=== PATIENT | female | born 1945 | race Hispanic/Latino ===

== ENCOUNTER 2017-09-08 09:14 | Inpatient (IN) | payer MEDICARE, OTHER ==
[~2017-09-08] VITALS: Ht 149.9 cm; Wt 84.9 kg
[~2017-09-08 09:14] MED LIST: ASPIRIN; ASPIRIN PO; LORTAB 7.5-5001 EACH PO; LOVENOX40 MG/0.4 PO; Z.0.KEPPRA1000 MG PO; Z.0.TOPAMAX50 MG PO
[2017-09-08] MEDS ORDERED: MORPHINE SULFATE 2 MG/ML SYR IV STA ×2 (10:06→13:29)
[2017-09-08] MEDS ORDERED: ONDANSETRON HCL 4 MG ORAL DISINTEGRATING TAB PO ONE (10:15)
--- NOTE | 2017-09-08 10:46 | Diagnostic Imaging Report ---
EXAMINATION: PA and lateral views of the chest. COMPARISON: Chest 2 views 10/13/2011 CLINICAL HISTORY: Abdominal pain and vomiting, right abdominal pain DISCUSSION: Lines/tubes: None. Lungs: The lungs are well inflated. Ill-defined 4.6 cm oval-shaped opacity projecting in the right lower lung only seen on the frontal view, which has no corresponding abnormality on the lateral view. This is slightly more conspicuous on today's exam. There is no evidence of consolidation or pulmonary edema. Pleura: There is no pleural effusion or pneumothorax. Heart and mediastinum: Enlarged cardiac silhouette. Pulmonary vasculature is normal. Tortuous aorta. Bones and soft tissues: No acute bony abnormalities. Degenerative changes in the thoracic spine IMPRESSION: No acute cardiopulmonary abnormalities. Ill-defined oval-shaped opacity projecting in the right lower lung only seen on the frontal view. Although this is slightly more conspicuous on today's exam, this probably represents summation of vascular shadows. A developing pneumonia could be considered, in the appropriate clinical setting. CT chest would be helpful for further evaluation, if clinically indicated. Signed by: Dr. Jakub Staton M.D. on 09/08/2017 10:42 AM
[2017-09-08 11:57] LABS: CLARITY,URINE CLEAR (CLEAR); COLOR,URINE YELLOW (YELLOW)
[2017-09-08 11:58] LABS: BASOPHILS % 0.2 % (0.0-1.0); HEMATOCRIT 49.6 % (34.2-44.1); HEMOGLOBIN 15.2 g/dL (12.0-16.0); LYMPHOCYTES # (AUTO) 1.2 (1.0-3.2); LYMPHOCYTES % 9.4 % (18.0-39.1); MEAN CORPUSCULAR HEMOGLOBIN 25.9 pg (28-32); MEAN CORPUSCULAR HGB CONC 30.6 g/dL (31-35); MEAN CORPUSCULAR VOLUME 84.4 fL (81-99); MONOCYTES # (AUTO) 0.6 (0.2-0.8); MONOCYTES % 4.6 % (4.4-11.3); NEUTROPHILS # (AUTO) 10.6 (2.1-6.9); NEUTROPHILS % 85.4 % (38.7-80.0); PLATELET COUNT 215 x10e3/uL (140-360); RED BLOOD COUNT 5.88 x10e6/uL (3.6-5.1); RED CELL DISTRIBUTION WIDTH 14.4 % (11.7-14.4)
[2017-09-08 11:58] LABS: BILIRUBIN,URINE NEGATIVE (NEGATIVE); KETONES,URINE NEGATIVE (NEGATIVE); LEUKOCYTE ESTERASE ,URINE NEGATIVE (NEGATIVE); NITRITE,URINE NEGATIVE (NEGATIVE); PROTEIN,URINE DIPSTICK TRACE (NEGATIVE); URINE UROBILINOGEN 0.2 mg/dL (0.2 - 1)
[2017-09-08 12:12] LABS: BACTERIA,URINE FEW /HPF; EPITHELIAL CELLS,URINE MODERATE /LPF; MUCUS,URINE FEW (RARE); RBC,URINE 0-5 /HPF (0-5); WBC,URINE (MAN) 0-5 /HPF (0-5)
[2017-09-08 12:16] LABS: ALANINE AMINOTRANSFERASE 21 IU/L (0-55); ALBUMIN 3.9 g/dL (3.5-5.0); ALBUMIN/GLOBULIN RATIO 0.8 (0.8-2.0); ALKALINE PHOSPHATASE 97 IU/L (40-150); AMYLASE 36 U/L (25-125); ANION GAP 13.3 mmol/L (8-16); BLOOD UREA NITROGEN 6 mg/dL (7-26); BUN/CREATININE RATIO 10 (6-25); CALCIUM 9.3 mg/dL (8.4-10.2); CARBON DIOXIDE 26 mmol/L (22-29); CHLORIDE 103 mmol/L (98-107); CREATINE KINASE 56 IU/L (29-168); CREATININE, SERUM 0.62 mg/dL (0.57-1.11); EST GLOMERULAR FILTRATION RATE > 60 ML/MIN (60-); GLUCOSE 148 mg/dL (74-118); LIPASE 14 U/L (8-78); POTASSIUM 3.3 mmol/L (3.5-5.1); SODIUM 139 mmol/L (136-145)
--- NOTE | 2017-09-08 12:45 | Diagnostic Imaging Report ---
EXAM: Right Upper Quadrant Ultrasound INDICATION: Abdominal pain right upper quadrant, and vomiting \S\ABD PAIN RT UPPER COMPARISON: None. TECHNIQUE: Transverse and longitudinal images of the right upper abdomen were obtained. FINDINGS: Liver: Size: 16.7 cm in the right midclavicular line, enlarged Appearance: Increased echogenicity, smooth contour Mass: No focal masses Gallbladder: Stones/Sludge: Mobile echogenic stones as well as sludge are noted in the gallbladder lumen. Wall: 0.5 cm Appearance: No pericholecystic fluid or hydrops. Sonographic Kimble's Sign: Positive Bile Ducts: Intrahepatic Ducts: No dilatation Extrahepatic Ducts: Common bile duct measures 0.5 cm, no dilatation Pancreas: Visualized portions of the pancreatic head, neck and proximal body are normal. Kidneys: Length: Right 12.3 cm Echogenicity: Normal Collecting System: No hydronephrosis Stone: None Cyst/Mass: None Vessels: Aorta: Visualized portions are normal Inferior Vena Cava: Visualized portions are normal Main Portal Vein: 1.0 cm, normal size with hepatopetal flow. Free Fluid: No ascites or pleural effusion IMPRESSION: 1. Sonographic findings consistent with acute cholecystitis, in the appropriate clinical setting. 2. Hepatomegaly with diffuse fatty infiltration. No focal lesions. Signed by: Dr. Jakub Staton M.D. on 09/08/2017 12:42 PM
[2017-09-08] MEDS ORDERED: MORPHINE SULFATE 2 MG/ML SYR IV PRN (13:30)
[2017-09-08] MEDS ORDERED: ONDANSETRON HCL INJ 2 MG/ML VIAL IV PRN (13:30)
--- OUTSIDE RECORDS SUMMARY | 2017-09-08 13:44 | XMS REPORT ---
Author Author [facility] Address Unknown Phone Unavailable Care Team Providers Care Accountancy Professor Name Role Phone NEYDA ZURITA Unavailable Unavailable Problems This patient has no known problems. Allergies, Adverse Reactions, Alerts This patient has no known allergies or adverse reactions. Medications This patient has no known medications. Results Test Description Test Time Test Comments Text Results Atomic Results Result Comments CHEST 2 VIEWS [place] [address] Patient Name: KYM ROSE MR #: [id number] : 1945 Age/Sex: 72/F Req #: [id number] Adm Physician: Ordered by: NEYDA ZURITA MD Report #: [id number] Location: ER Room/Bed: Procedure: [id number] DX/CHEST 2 VIEWS Exam Date: 09/08/17 Exam Time: 1013 REPORT STATUS: Signed EXAMINATION: PA and lateral views of the chest. COMPARISON: Chest 2 views 10/13/2011 CLINICAL HISTORY: Abdominal pain and vomiting, right abdominal pain DISCUSSION: Lines/tubes: None. Lungs: The lungs are well inflated. Ill-defined 4.6 cm oval-shaped opacity projecting in the right lower lung only seen on the frontal view, which has no corresponding abnormality on the lateral view. This is slightly more conspicuous on today's exam. There is no evidence of consolidation or pulmonary edema. Pleura: There is no pleural effusion or pneumothorax. Heart and mediastinum: Enlarged cardiac silhouette. Pulmonary vasculature is normal. Tortuous aorta. Bones and soft tissues : No acute bony abnormalities. Degenerative changes in the thoracic spine IMPRESSION: No acute cardiopulmonary abnormalities. Ill-defined oval- shaped opacity projecting in the right lower lung only seen on the frontal view. Although this is slightly more conspicuous on today's exam, this probably represents summation of vascular shadows. A developing pneumonia could be considered, in the appropriate clinical setting. CT chest would be helpful for further evaluation, if clinically indicated. Signed by: Dr. Staci Staton M.D. on 09/08/2017 10:42 AM Dictated By: STACI STATON MD 104 Transcribed By: EMMY on 09/08/171041 COPY TO: NEYDA ZURITA MD GALLBLADDER [place] [address] Patient Name: KYM ROSE MR #: [id number] : 1945 Age/Sex: 72/F Req #: [id number] Adm Physician: Ordered by: NEYDA ZURITA MD Report #: [id number] Location: ER Room/Bed: Procedure: [id number] US/US GALLBLADDER Exam Date: Exam Time: REPORT STATUS: Signed EXAM: Right Upper Quadrant Ultrasound INDICATION: Abdominal pain right upper quadrant, and vomiting COMPARISON: None. TECHNIQUE: Transverse and longitudinal images of the right upper abdomen were obtained. FINDINGS: Liver: Size: 16.7 cm in the right midclavicular line, enlarged Appearance: Increased echogenicity, smooth contour Mass: No focal masses Gallbladder: Stones/Sludge: Mobile echogenic stones as well as sludge are noted in the gallbladder lumen. Wall : 0.5 cm Appearance: No pericholecystic fluid or hydrops. Sonographic Kimble's Sign: Positive Bile Ducts: Intrahepatic Ducts: No dilatation Extrahepatic Ducts: Common bile duct measures 0.5 cm, no dilatation Pancreas: Visualized portions of the pancreatic head, neck and proximal body are normal. Kidneys: Length: Right 12.3 cm Echogenicity : Normal Collecting System: No hydronephrosis Stone: None Cyst/Mass: None Vessels: Aorta: Visualized portions are normal Inferior Vena Cava : Visualized portions are normal Main Portal Vein: 1.0 cm, normal size with hepatopetal flow. Free Fluid: No ascites or pleural effusion IMPRESSION: 1. Sonographic findings consistent with acute cholecystitis, in the appropriate clinical setting. 2. Hepatomegaly with diffuse fatty infiltration. No focal lesions. Signed by: Dr. Staci Staton M.D. on 09/08/2017 12:42 PM Dictated By: STACI STATON MD 1242 Transcribed By: EMMY on 1242 COPY TO: NEYDA ZURITA MD
[2017-09-08] MEDS ORDERED: PANTOPRAZOLE 40 MG 10ML VIAL IV NR (13:45)
[2017-09-08] MEDS: PIPER-TAZ 3.375 GM / NS 50ML IV SCH ×2 (13:52→21:12)
[2017-09-08 15:00] VITALS: BP 168/79
[2017-09-08] MEDS: SOD CHL 0.45%/POT CHL 20MEQ 1,000 ML IV SCH (15:00)
[2017-09-08] MEDS ORDERED: LIDOCAINE HCL 2% LOCAL INJ 5 ML SDV VIAL INJ ONE (15:46)
[2017-09-08] MEDS ORDERED: SUCCINYLCHOLINE 200 MG/10 ML SYR ONE (15:46)
[2017-09-08] MEDS ORDERED: ROCURONIUM BROMIDE 10 MG/ML 5ML VIAL ONE (15:46)
[2017-09-08] MEDS ORDERED: GLYCOPYRROLATE INJ 1MG/ 5 ML SYR ONE (15:46)
[2017-09-08] MEDS ORDERED: ONDANSETRON HCL INJ 2 MG/ML VIAL ONE (15:46)
[2017-09-08] MEDS ORDERED: PROPOFOL IV EMULSION 10 MG/ML 20 ML VIAL ONE (15:46)
[2017-09-08] MEDS ORDERED: DESFLURANE 240 ML BTL INH ONE (15:46)
[2017-09-08] MEDS ORDERED: ACETAMINOPHEN 1000 MG/100 ML IV ONE (15:46)
[2017-09-08] MEDS ORDERED: NEOSTIGMINE 5 MG/5ML SYR ONE (15:46)
[2017-09-08 15:51] VITALS: BP 168/79
[2017-09-08] MEDS: HYDROMORPHONE 2MG/ML INJ IV PRN ×2 (18:20→23:59)
[2017-09-08 20:00] VITALS: BP 132/63
--- NOTE | 2017-09-08 21:36 | History and Physical ---
CHIEF COMPLAINT: Abdominal pain and acute cholecystitis. HISTORY: Patient is a 72-year-old female who came in with onset of acute right upper quadrant abdominal pain associated with nausea and vomiting. Ultrasound showed the patient had acute cholecystitis. The patient also has hepatomegaly with diffuse fatty infiltrates. Patient is otherwise stable. No previous surgical intervention. She does have a high white cell count of 12,400. There is a left shift. The patient is otherwise stable at this time. PAST MEDICAL HISTORY: Obesity, osteoarthritis. SURGICAL HISTORY: Noncontributory. SOCIAL HISTORY: Patient does not smoke or use alcohol. No recreational drugs. ALLERGIES: NO KNOWN ALLERGIES. HOME MEDICATIONS: Aspirin. REVIEW OF SYSTEMS: Right upper quadrant abdominal pain associated with nausea and vomiting. PHYSICAL EXAMINATION GENERAL: The patient is in no acute distress, although she is in pain. VITAL SIGNS: Temperature is 98, blood pressure 125/95, pulse rate 85, respirations 18. HEENT: Normocephalic, atraumatic, anicteric. NECK: Supple. PULMONARY: Diminished breath sounds bilaterally. CARDIOVASCULAR: Regular rate and rhythm. ABDOMEN: Tenderness in right upper quadrant with some guarding. EXTREMITIES: No cyanosis or edema. NEUROLOGIC: No focal deficit. LABORATORY: WBC 12.4, hemoglobin 15, hematocrit 49, platelets 215. There is a left shift of 85%. Chemistries: Sodium 139, potassium 3.3, chloride 103, bicarb 26, BUN 6, creatinine 0.6, glucose 148. Ultrasound of the gallbladder showed acute cholecystitis. IMPRESSION 1. Acute cholecystitis. 2. Nausea and vomiting. 3. Abdominal pain. 4. Electrolyte disorder. PLAN: IV antibiotics. Consultation with Dr. Anuel Smyth. IV fluids with potassium replacement. Pain control. Job#: [id number]
[2017-09-09] VITALS (8 sets, daily range): BP systolic 115–134; BP diastolic 61–76
[2017-09-09] MEDS: SOD CHL 0.45%/POT CHL 20MEQ 1,000 ML IV SCH ×3 (00:59→19:45)
[2017-09-09] MEDS: HYDROMORPHONE 2MG/ML INJ IV PRN ×2 (04:53→16:15)
[2017-09-09] MEDS: PIPER-TAZ 3.375 GM / NS 50ML IV SCH ×3 (05:28→22:00)
[2017-09-09 07:55] LABS: BASOPHILS % 0.2 % (0.0-1.0); HEMATOCRIT 49.8 % (34.2-44.1); HEMOGLOBIN 15.3 g/dL (12.0-16.0); LYMPHOCYTES # (AUTO) 1.6 (1.0-3.2); LYMPHOCYTES % 7.4 % (18.0-39.1); MEAN CORPUSCULAR HGB CONC 30.7 g/dL (31-35); MEAN CORPUSCULAR VOLUME 84.7 fL (81-99); MONOCYTES # (AUTO) 1.8 (0.2-0.8); NEUTROPHILS # (AUTO) 18.4 (2.1-6.9); NEUTROPHILS % 83.6 % (38.7-80.0); PLATELET COUNT 230 x10e3/uL (140-360); RED BLOOD COUNT 5.88 x10e6/uL (3.6-5.1)
[2017-09-09 08:27] LABS: ALANINE AMINOTRANSFERASE 20 IU/L (0-55); ALBUMIN 3.4 g/dL (3.5-5.0); ALBUMIN/GLOBULIN RATIO 0.7 (0.8-2.0); ALKALINE PHOSPHATASE 85 IU/L (40-150); AMYLASE 19 U/L (25-125); ANION GAP 12.6 mmol/L (8-16); BLOOD UREA NITROGEN 12 mg/dL (7-26); BUN/CREATININE RATIO 16 (6-25); CARBON DIOXIDE 25 mmol/L (22-29); CHLORIDE 102 mmol/L (98-107); CREATININE, SERUM 0.74 mg/dL (0.57-1.11); EST GLOMERULAR FILTRATION RATE > 60 ML/MIN (60-); GLUCOSE 149 mg/dL (74-118); LIPASE 4 U/L (8-78); POTASSIUM 3.6 mmol/L (3.5-5.1); SODIUM 136 mmol/L (136-145)
[2017-09-09] MEDS: PANTOPRAZOLE 40 MG 10ML VIAL IV SCH (09:26)
[2017-09-09] MEDS ORDERED: BUPIVACAINE HCL 0.5% INJ 30 ML VIAL INJ ONE (09:46)
[2017-09-09 11:24] LABS: LYMPHOCYTES % (MANUAL) 7 % (19-48); MONOCYTES % (MANUAL) 9 % (3.4-9.0); NEUTROPHILS % (MANUAL) 84 % (40-74); PLATELET ESTIMATE ADEQUATE; PLATELET MORPHOLOGY COMMENT NORMAL; RBC MORPHOLOGY COMMENT NORMAL
[2017-09-09] MEDS: DEXTROSE 5%/LACTATED RINGERS 1,000 ML IV SCH ×2 (11:50→20:09)
[2017-09-09] MEDS ORDERED: HYDROCODONE/APAP 5MG-325MG TAB PO PRN (12:00)
[2017-09-09] MEDS ORDERED: ONDANSETRON HCL INJ 2 MG/ML VIAL IV PRN (12:00)
[2017-09-09] MEDS ORDERED: FENTANYL CITRATE/PF 100MCG/2 ML INJ ONE ×2 (12:11→16:09)
[2017-09-09] MEDS ORDERED: MORPHINE SULFATE 2 MG/ML SYR IV PRN (12:15)
--- NOTE | 2017-09-09 22:09 | Consultation ---
DATE OF CONSULTATION: September 09, 2017 REFERRING PHYSICIAN: Dr. Bull Camacho HISTORY OF PRESENT ILLNESS: Patient is a 72-year-old female, who presents with complaints of right upper quadrant abdominal pain. She has had pain for about 2 days. She has had similar pains previously, but never this severe. Patient has associated nausea, has vomited multiple times. Evaluation of ultrasound of the gallbladder revealed gallstones with sludge in the gallbladder, mildly thickened gallbladder wall. There are no symptoms of jaundice. PAST MEDICAL HISTORY: Otherwise unremarkable. She has no chronic medical problems, only previous surgery, bilateral knee replacement surgery. SHE HAS NO KNOWN ALLERGIES. CURRENT MEDICATIONS: There are none. FAMILY HISTORY: Noncontributory. SOCIAL HISTORY: The patient does not smoke cigarettes, does not drink alcohol. REVIEW OF SYSTEMS: As stated above. Otherwise was negative. EXAM VITALS: Slight tachycardia. Heart rate in the 90s. She is afebrile. GENERAL: The patient is awake and alert, in no distress. HEENT: Reveals no scleral icterus. NECK: Has no masses. LUNGS: Equal breath sounds are clear bilaterally. CARDIAC: Regular rate and rhythm with no murmur. ABDOMEN: Tender in the right upper quadrant. There is no mass. There are questionable signs of peritonitis. There is no organomegaly. EXTREMITIES: No edema. Pulses are palpable. NEUROLOGIC: Intact. LAB TESTS: White blood cell count is elevated 12.4. Hemoglobin and hematocrit are normal. Chemistries are essentially normal. ASSESSMENT: A 72-year-old female with acute cholecystitis with cholelithiasis. She will benefit from cholecystectomy. PLAN: To schedule for today. Procedure was explained to the patient including risks, benefits, and alternatives. She understands the procedure. She has had the opportunity to ask questions. She is aware of the possible need for open surgery. Thank you for asking me to see Ms. Booth. Job#: [id number] CQ
[2017-09-10] VITALS (8 sets, daily range): BP systolic 103–150; BP diastolic 64–86
--- NOTE | 2017-09-10 01:19 | Operative Report ---
DATE OF PROCEDURE: September 09, 2017 PREOPERATIVE DIAGNOSES: 1. Acute cholecystitis. 2. Cholelithiasis. POSTOPERATIVE DIAGNOSES: 1. Acute cholecystitis. 2. Cholelithiasis. PROCEDURES: 1. Diagnostic laparoscopy. 2. Laparoscopic cholecystectomy. SANITATION WORKER: None. ANESTHESIA: General endotracheal. INDICATIONS AND FINDINGS: Patient is a 72-year-old female admitted to the hospital with complaints of severe right upper quadrant abdominal pain. Workup revealed gallstones and findings suggestive of acute cholecystitis. At surgery, patient was found to have acutely inflamed cholecystitis with areas of gangrene containing multiple stones. The large stone impacted in neck of the gallbladder. TECHNIQUE: After adequate general endotracheal anesthesia with the patient in supine position, the abdomen was prepped and draped in sterile fashion with Alma solution. Skin in the umbilicus was infiltrated with 0.5% Marcaine. An incision was made in the umbilicus. The abdominal wall was elevated, and Veress needle was introduced. Pneumoperitoneum was then created. A 10-mm trocar and cannula were then passed through the umbilical wound. Laparoscopic camera was introduced. Initial laparoscopy revealed inflammatory process in right upper quadrant. Liver that could be seen appeared normal. Lower abdomen appeared normal. There was no free fluid. A 10-mm trocar and cannula were placed in the epigastrium and two 5-mm trocars and cannulas placed in right upper quadrant. These were placed under direct vision. There was omentum adherent over an acutely inflamed gallbladder, which was distended and edematous with patches of gangrene. The gallbladder was tense. It was decompressed with a needle, contained some sludge and dark bile. Fundus of the gallbladder was grasped and retracted superiorly. Some remaining fibrinous adhesions to the neck of the gallbladder were bluntly divided, exposing neck of the gallbladder. The peritoneum over the neck of the gallbladder was incised. The neck of the gallbladder was dissected free. The gallbladder and cystic duct junction was dissected free. Cystic artery was also identified. This was dissected free and divided between Hemoclips close to the gallbladder. Cystic duct was then divided between Hemoclips with 3 clips being left on the common bile duct side. The gallbladder was dissected free from the liver using scissors and electrocautery. Once it was entirely freed, it was placed into an Endopouch and brought out through the epigastric cannula, contained at least 1 large stone. Gallbladder bed had some bleeding, this was controlled with electrocautery. Some areas superiorly where there was bleeding from the gallbladder bed was not controlled with electrocautery. Surgicel gauze was packed over this area and pressure held and hemostasis achieved. The gallbladder bed was irrigated with saline and inspected for hemostasis, which was seen to be adequate. All fluid was aspirated. The wound was inspected once again for hemostasis, which was seen to be adequate. Instruments and cannulas were then removed. Pneumoperitoneum was evacuated. Wounds were then closed. Fascia in the umbilical and epigastric wound closed with #0 Vicryl. Skin to all wounds closed with uzma. Sterile dressing was applied. The patient tolerated the procedure well. Estimated blood loss was 200 mL. There were no complications. All counts were correct. The patient was taken to the recovery room in satisfactory condition. Job#: [id number] cc:ANNA DEL CID MD
[2017-09-10] MEDS: HYDROMORPHONE 2MG/ML INJ IV PRN ×2 (02:20→23:19)
[2017-09-10] MEDS: DEXTROSE 5%/LACTATED RINGERS 1,000 ML IV SCH ×4 (03:50→23:30)
[2017-09-10] MEDS: SOD CHL 0.45%/POT CHL 20MEQ 1,000 ML IV SCH ×2 (05:45→15:45)
[2017-09-10] MEDS: PIPER-TAZ 3.375 GM / NS 50ML IV SCH ×3 (06:00→22:08)
[2017-09-10 06:50] LABS: BASOPHILS % 0.2 % (0.0-1.0); HEMATOCRIT 42.3 % (34.2-44.1); HEMOGLOBIN 13.1 g/dL (12.0-16.0); LYMPHOCYTES # (AUTO) 1.4 (1.0-3.2); LYMPHOCYTES % 8.4 % (18.0-39.1); MEAN CORPUSCULAR HEMOGLOBIN 25.9 pg (28-32); MEAN CORPUSCULAR VOLUME 83.8 fL (81-99); MONOCYTES # (AUTO) 1.5 (0.2-0.8); MONOCYTES % 8.8 % (4.4-11.3); NEUTROPHILS # (AUTO) 13.6 (2.1-6.9); PLATELET COUNT 197 x10e3/uL (140-360); RED BLOOD COUNT 5.05 x10e6/uL (3.6-5.1); RED CELL DISTRIBUTION WIDTH 14.6 % (11.7-14.4)
[2017-09-10 06:57] LABS: ALANINE AMINOTRANSFERASE 36 IU/L (0-55); ALBUMIN 2.5 g/dL (3.5-5.0); ALBUMIN/GLOBULIN RATIO 0.6 (0.8-2.0); ALKALINE PHOSPHATASE 69 IU/L (40-150); ANION GAP 9.2 mmol/L (8-16); BLOOD UREA NITROGEN 9 mg/dL (7-26); BUN/CREATININE RATIO 15 (6-25); CALCIUM 8.6 mg/dL (8.4-10.2); CARBON DIOXIDE 26 mmol/L (22-29); CHLORIDE 109 mmol/L (98-107); CREATININE, SERUM 0.61 mg/dL (0.57-1.11); EST GLOMERULAR FILTRATION RATE > 60 ML/MIN (60-); GLUCOSE 128 mg/dL (74-118); POTASSIUM 4.2 mmol/L (3.5-5.1); SODIUM 140 mmol/L (136-145)
[2017-09-10] MEDS: PANTOPRAZOLE 40 MG 10ML VIAL IV SCH (08:21)
[2017-09-11] VITALS: BP 123/58
[2017-09-11] MEDS: SOD CHL 0.45%/POT CHL 20MEQ 1,000 ML IV SCH ×2 (01:45→11:45)
[2017-09-11 04:00] VITALS: BP 115/58
[2017-09-11] MEDS: DEXTROSE 5%/LACTATED RINGERS 1,000 ML IV SCH ×2 (06:32→11:50)
[2017-09-11] MEDS: PIPER-TAZ 3.375 GM / NS 50ML IV SCH ×2 (06:32→14:00)
[2017-09-11 07:45] VITALS: BP 143/67
[2017-09-11 08:15] VITALS: BP 143/67
[2017-09-11] MEDS: PANTOPRAZOLE 40 MG 10ML VIAL IV SCH (09:43)
[2017-09-11 12:27] VITALS: BP 143/74
[2017-09-11 16:01] VITALS: BP 135/69
[2017-09-11] MEDS ORDERED: ULTRAM 50MG50 MG PO (18:24)
[2017-09-11] MEDS ORDERED: ZOFRAN ODT4 MG SL (18:24)
[2017-09-11] MEDS ORDERED: AUGMENTIN 875-1 EACH PO (18:24)
--- NOTE | 2017-09-11 18:24 | Discharge Summary ---
LABORER BITUMINOUS PAVING: Dr. Anuel Smyth. FINAL DIAGNOSES: 1. Status post sepsis with shock, multiple bolus IV fluid. 2. Acute cholecystitis associated with leukocytosis, fever and abdominal pain. 3. Status post laparoscopic cholecystectomy. Procedure was done on September 09, 2017. SUMMARY: The patient is a 72-year-old female who came to the hospital with acute abdominal pain. This had been going on for a few days. The patient has temperature of103. She has low blood pressure requiring multiple boluses of IV fluids. White cell count was 22,000 with a left shift. Ultrasound was consistent with acute cholecystitis. Patient subsequently underwent laparoscopic cholecystectomy. The patient was placed on antibiotics. She did better. She tolerated all her diet. She remained afebrile now. The patient is stable. She will go home today to follow up as an outpatient. The patient will continue with Augmentin 875 mg twice a day for 5 days. Ultracet for pain. Resume home medications if any. She will be followed up with Dr. Smyth within a week. Patient is stable and discharged home today. Please review the medication reconciliation list. Review the lab work today. Job#: [id number]
[2017-09-11] MEDS ORDERED: CELEBREX100 MG PO (18:25)
== END 2017-09-11 19:35 | disposition home or self-care (01) | DRG 853 ==
LOC: ER 09:14 → ERHOLD 13:41 → MED/SURG3 14:16
PROVIDERS: ADMIT Internal Medicine; ATTEND Internal Medicine
PROC: 0FT44ZZ Resection of Gallbladder, Percutaneous Endoscopic Approach (ICD-10-PCS; principal; 2017-09-09 10:20)
DX: A41.9 Sepsis, unspecified organism (principal); R65.21 Severe sepsis with septic shock; K80.00 Calculus of gallbladder with acute cholecystitis without obstruction; K76.0 Fatty (change of) liver, not elsewhere classified; E66.9 Obesity, unspecified; Z68.37 Body mass index [BMI] 37.0-37.9, adult; E87.8 Other disorders of electrolyte and fluid balance, not elsewhere classified; G47.33 Obstructive sleep apnea (adult) (pediatric)
CPT/HCPCS: 36415; 71046; 76705; 80053; 81001; 82150; 82550; 82553; 83690; 84484; 85025; 88304; 93005; 96361; 96367; 99284; J2001; J2270; J2405; J2543; J7120

== ENCOUNTER → 2018-10-18 | Outpatient (CLI) | payer MEDICARE ==
[~2018-10-18] MED LIST changes: +AUGMENTIN 875-1 EACH PO; +CELEBREX100 MG PO; +ULTRAM 50MG50 MG PO; +ZOFRAN ODT4 MG SL
--- NOTE | 2018-10-19 09:23 | Diagnostic Imaging Report ---
Exam: Bone mineral density study. History: POSTMENOPAUSAL Comparison: None available. Discussion: Evaluation of the left hip and lumbar spine was performed. The study is technically adequate. The patient's fracture risk is compared to an age-matched control. The patient denies prior surgery/fracture of the spine, hips or forearm. Left hip femoral neck bone mineral density: 0.8 g/cm2, T-score is -1.1, Z-score is 0.8. Left hip total bone mineral density: 0.9 g/cm2, T-score is -0.3, Z-score is 1.3. Lumbar spine total bone mineral density: 0.9 g/cm2, T-score is -1.8, Z-score is 0.4. Impression: 1. Bone mineralization by WHO Classification is low bone mass/osteopenia, the fracture risk is increased. 2. The FRAX 10-year probability of major osteoporotic fracture is 8% and hip fracture is 0.8%. These probabilities assume the patient is untreated. Signed by: Dr. Ozzy Kearney D.O., M.M.M. on 10/19/2018 9:19 AM
--- NOTE | 2018-10-28 09:00 | Diagnostic Imaging Report ---
#[id number] - MGSCRBIL #BILATERAL DIGITAL SCREENING MAMMOGRAM WITH CAD: 10/18/2018 CLINICAL: Routine screening. Comparison is made to exams dated: 12/18/2013 mammogram and 11/20/2013 mammogram - [facility]. Current study contains 4 films. The tissue of both breasts is predominantly fatty. Current study was also evaluated with a Computer Aided Detection (CAD) system. Benign appearing calcifications are noted bilaterally. No significant masses, calcifications, or other findings are seen in either breast. IMPRESSION: BENIGN There is no mammographic evidence of malignancy. A 1 year screening mammogram is recommended. The patient will be notified by letter of the results. KERRY NORRIS M.D. ct/penrad:10/25/2018 08:24:06 Aircraft Sheet Metal Mechanic: Darshana WYLIE(Carole)(Paulina), [facility] [place] letter sent: Normal Exam Mammogram BI-RADS: 2 Benign
== END ==
LOC: MAMMO 14:00
PROVIDERS: ATTEND Family Medicine
DX: Z12.31 Encounter for screening mammogram for malignant neoplasm of breast (principal); N95.9 Unspecified menopausal and perimenopausal disorder
CPT/HCPCS: 77067; 77080

== ENCOUNTER → 2021-05-16 | Outpatient (CLI) | payer MEDICARE | LOC: MAMMO 10:11 | PROVIDERS: ATTEND Family Medicine | DX: Z12.31 Encounter for screening mammogram for malignant neoplasm of breast (principal) | CPT/HCPCS: 77067 ==